=== PATIENT | female | born 1970 | race Native Hawaiian/Other Pacific Islander ===

== ENCOUNTER 2016-10-17 00:49 | Emergency (ER) | payer SELFPAY ==
[2016-10-17 01:04] VITALS: BP 129/79
[2016-10-17 01:20] LABS: Basophils % (Auto) 0.6 % (0.0-1.8); Eosinophils % (Auto) 1.6 % (0.0-4.3); Hematocrit 37.5 % (30.3-42.9); Hemoglobin 12.9 gm/dl (10.1-14.3); Mean Corpuscular HGB Conc 35 % (30-34); Mean Corpuscular Hemoglobin 31 pg (28-32); Mean Corpuscular Volume 89 fl (79-97); Platelet Count 200 K/mm3 (140-440); Red Blood Count 4.23 M/mm3 (3.65-5.03); Red Cell Distribution Width 13.3 % (13.2-15.2); White Blood Count 7.7 K/mm3 (4.5-11.0)
[2016-10-17 01:46] LABS: Anion Gap 22 mmol/L; Blood Urea Nitrogen 18 mg/dL (7-17); Calcium 9.2 mg/dL (8.4-10.2); Carbon Dioxide 18 mmol/L (22-30); Glucose 101 mg/dL (65-100); Potassium 3.5 mmol/L (3.6-5.0); Sodium 137 mmol/L (137-145)
--- NOTE | 2016-10-19 10:44 | ED Elopement Review ---
ED Pt Elopement review - Results review Lab results: Laboratory Tests 10/17/16 10/17/16 10/17/16 01:08 01:08 01:08 WBC 7.7 RBC 4.23 Hgb 12.9 Hct 37.5 MCV 89 MCH 31 MCHC 35 H RDW 13.3 Plt Count 200 Lymph % (Auto) 31.4 Eddy % (Auto) 8.1 H Eos % (Auto) 1.6 Baso % (Auto) 0.6 Lymph # 2.4 Eddy # 0.6 Eos # 0.1 Baso # 0.0 Seg Neutrophils % 58.3 Seg Neutrophils # 4.5 Sodium 137 Potassium 3.5 L Chloride 101.0 Carbon Dioxide 18 L Anion Gap 22 BUN 18 H Creatinine 0.9 Estimated GFR > 60 BUN/Creatinine Ratio 20.00 Glucose 101 H Calcium 9.2 Troponin T < 0.010 HCG, Qual Negative - Call Back decision Pt Call Back Decision: No action required
== END 2016-10-17 01:09 | disposition left against medical advice (07) ==
LOC: ED 00:49
DX: T78.40XA Allergy, unspecified, initial encounter (principal); Z53.21 Procedure and treatment not carried out due to patient leaving prior to being seen by health care provider
CPT/HCPCS: 36415; 80048; 84484; 84703; 85025; 93005; 93010